=== PATIENT | female | born 1945 | race Caucasian/White ===

== ENCOUNTER → 2017-04-28 | Day surgery (SDC) | payer MEDICARE, BC ==
[~2017-04-28] VITALS: Ht 157.5 cm; Wt 93.4 kg
[~2017-04-28] MED LIST: *ONDANSETRON 4 MG VIAL PERIprocedural Use ONLY ONE; BUPR150XL PO; CHLORHEXIDINE GLUCONATE 2 % 1 PACK (2 CLOTHS) TOPICAL PRN; DEXAMETHASONE SOD PHOS 4 MG/ML VIAL IV ONE; DO NOT ADM ANY ANTICOAGULANT DRUGS PRN; INSULIN HUMAN REGULAR 1,000 UNITS/10 ML VIAL SQ PRN; LACTATED RINGER'S 1000 ML IV PRN; LIDOCAINE HCL 1% PF 5 ML SYRINGE OTHER ONE; METOPROLOL TARTRATE 25 MG TAB PO PRN; MIDAZOLAM HCL 2 MG/2 ML VIAL IV ONE; MIDAZOLAM HCL 2 MG/2 ML VIAL ONE; ONDANSETRON HCL 4 MG/2 ML VIAL IV PUSH ONE; OXYC1TAB63 PO; POVIDONE IODINE 5% (ANTISEPSIS KIT) 4 APPLICATIONS EACH NARE PRN; PROPOFOL 200 MG/20 ML AMP IV ONE; SODIUM CHLORID 0.9% 500 ML IV PRN; SODIUM CHLORIDE 0.9% INJ 100 ML ONE; SODIUM CHLORIDE 0.9% INJ 50 ML ONE; ceFAZolin 1,000 MG/NS 100 ML IV SCH; ceFAZolin INJ 1,000 MG VIAL ONE; oxyCODONE/ACETAMINOPHEN 5 MG/325 MG TAB PO PRN
--- NOTE | 2017-04-28 08:00 | PD.OP ---
Operative Report Date of Surgery: Apr 28, 2017 Preoperative Diagnosis: (1) Postmenopausal bleeding (2) DUB (dysfunctional uterine bleeding) (3) Stricture and stenosis of cervix uteri (4) Pelvic and perineal pain Postoperative Diagnosis: (1) Postmenopausal bleeding (2) DUB (dysfunctional uterine bleeding) (3) Stricture and stenosis of cervix uteri (4) Pelvic and perineal pain Procedure: 1. hysteroscopy 2. polypectomy 3. endometrial biopsies with Myosure 4. endometrial curettings Anesthesia: MEGAN Surgeon: Breana Canseco Cardiovascular Invasive Specialist(s): OR Staff Operation and Findings: IVF: 800 ml LR + IV antibiotics given prior to surgery UO: 100 ml EBL: 10 ml Findings: 1. endometrial polyps 2. vascular endometrium around both cornua 3. abnormal-appearing endometrium noted in fundus Specimens: endometrial polyps, endometrial biopsies, endometrial curettings Complications: none Condition: stable Disposition: PACU Descriptions of the procedure: I discussed the risks, benefits and alternatives of the procedure with the patient. Informed consent was obtained after questions were answered. She was taken to the operating room with her IV running. She was placed in the supine position and was given general anesthesia without difficulties or complications. She was then placed in the dorsal lithotomy position and was prepped and draped in the usual sterile fashion. A bivalve speculum was placed inside the patient's vagina. The anterior aspect of the cervix was grasped with a single tooth tenaculum for manipulation. The cervix was carefully dilated. A hysteroscope was introduced inside the patient' s uterus. The uterine cavity was noted to have several polyps, some abnormal- looking vascular areas especially at both cornua were noted. The Myosure was used to remove polyps and to take multiple biopsies. Next, a gentle D&C was carefully done. The endometrial polyps, biopsies and curettings were sent to pathology. All the instruments were removed from the uterine cavity. The cervix was noted to be hemostatic after applying Monsel and pressure. All the instruments were removed from the patient's vagina. The patient tolerated the procedure well. She was successfully awaken from general anesthesia and was transferred to PACU in stable condition. Note: I discussed the surgical findings and surgical procedures with the patient 's . His questions were answered. He verbalized understanding and agreement to the procedures done. Breana Canseco MD Apr 28, 2017 08:00
--- NOTE | 2017-04-28 13:42 | EKG ---
Date Performed: 04/28/2017 Time Performed: 08:43:35 PTAGE: 71 years EKG: Sinus rhythm MARKED LEFT AXIS DEVIATION ABNORMAL ECG NO PREVIOUS TRACING DOCTOR: Argelia Vazuqez Interpretating Date/Time 04/28/2017 13:41:44
[2017-04-28 14:18] VITALS: BP 152/83; PULSE 81; RESP 18; TEMP 97.5; O2SAT 96
== END | disposition home or self-care (01) ==
LOC: HSDC 07:24
PROVIDERS: ATTEND Obstetrics & Gynecology
DX: N95.0 Postmenopausal bleeding (principal); N93.8 Other specified abnormal uterine and vaginal bleeding; N88.2 Stricture and stenosis of cervix uteri; R94.31 Abnormal electrocardiogram [ECG] [EKG]
CPT/HCPCS: 00952; 58558; 88305; 93005; J0690; J2250; J2405; J7120; J1100; J3010